=== PATIENT | female | born 1995 | race Caucasian/White ===

== ENCOUNTER 2017-04-19 14:47 | Emergency (ER) | payer SELFPAY ==
[2017-04-19 14:53] VITALS: BP 120/82
--- NOTE | 2017-04-19 14:58 | ED.ADGEN ---
Adult General Chief Complaint Chief Complaint Left hand injury HPI HPI Patient is a 21 year old female who presents with left-hand injury. Yesterday she was walking up the steps trying to carry a box the boxes falling so she put her left hand up and caught the palm aspect of her right below her thumb on the door frame sharp edge. She states she's been having pain constantly since then. She has not tried anything yet for pain other than icing it for 20 minutes today. She presents to ER with 10 out 10 pain. She denies any nausea vomiting numbness or tingling in her hand. Review of Systems Review of Systems Constitutional: Denies fever or chills [] Eyes: Denies change in visual acuity, redness, or eye pain [] HENT: Denies nasal congestion or sore throat [] Respiratory: Denies cough or shortness of breath [] Cardiovascular: No additional information not addressed in HPI [] GI: Denies abdominal pain, nausea, vomiting, bloody stools or diarrhea [] : Denies dysuria or hematuria [] Musculoskeletal: Denies back pain, positive for left hand pain Integument: Denies rash or skin lesions [] Neurologic: Denies headache, focal weakness or sensory changes [] Endocrine: Denies polyuria or polydipsia [] Physical Exam Physical Exam Constitutional: Well developed, well nourished, no acute distress, non-toxic appearance. [] HENT: Normocephalic, atraumatic, bilateral external ears normal, oropharynx moist, no oral exudates, nose normal. [] Eyes: PERRLA, EOMI, conjunctiva normal, no discharge. [] Neck: Normal range of motion, no tenderness, supple, no stridor. [] Cardiovascular:Heart rate regular rhythm, no murmur [] Lungs & Thorax: Bilateral breath sounds clear to auscultation [] Abdomen: Bowel sounds normal, soft, no tenderness, no masses, no pulsatile masses. [] Skin: Warm, dry, no erythema, no rash. [] Back: No tenderness, no CVA tenderness. [] Extremities: Tender to palpitation over the palmar aspect below her thumb proximal hand on the palmar aspect, mild ecchymosis noted close to midline, able to flex and extend at the risk without any pain or tenderness, able to flex and extend at the MCP joints, she does have tenderness which tries to abduct her thumb but no pain at the snuffbox. No cyanosis, no clubbing, ROM intact, no edema. [] Neurologic: Alert and oriented X 3, normal motor function, normal sensory function, no focal deficits noted. [] Psychologic: Affect normal, judgement normal, mood normal. [] EKG EKG [] Radiology/Procedures Radiology/Procedures 3 views of the left hand did not show any fractures, dislocations, or soft tissue abnormalities, as interpreted by me. Course & Med Decision Making Course & Med Decision Making Pertinent Labs and Imaging studies reviewed. (See chart for details) X-rays interpreted by me did not show any fractures. She was put in a Velcro splint and discharged with 20 tablets of Davis. She is instructed not to drive or drink alcohol while taking the medicine, to follow instructions on the bottle and not take more than prescribed, return precautions given, she is agreeable to the plan and being discharged in stable condition at this time. Final Impression Final Impression Left hand contusion Problems: Dragon Disclaimer Dragon Disclaimer This electronic medical record was generated, in whole or in part, using a voice recognition dictation system. CONNIE ENRIQUEZ MD Apr 19, 2017 14:58
--- NOTE | 2017-04-20 08:56 | RAD ---
Three-view acute abdominal series. History: Left hand pain, patient fell 3 views were taken of the left hand. There is no fracture or osseous abnormality. Impression: 1. Negative left hand.
== END 2017-04-19 16:11 | disposition home or self-care (01) ==
LOC: ER 14:47
DX: S60.222A Contusion of left hand, initial encounter (principal); W23.0XXA Caught, crushed, jammed, or pinched between moving objects, initial encounter; Y93.01 Activity, walking, marching and hiking; Y99.8 Other external cause status; Y92.89 Other specified places as the place of occurrence of the external cause
CPT/HCPCS: 29125; 73130; 99284-25